=== PATIENT | male | born 1980 | race Caucasian/White ===

== ENCOUNTER 2022-02-14 11:44 | Observation (INO) | payer SELFPAY ==
[2022-02-14 12:22] LABS: Hemoglobin 15.3 g/dL (14.0-18.0); Mean Corpuscular HGB CONC 33.9 g/dL (32.0-36.0); Mean Corpuscular Hemoglobin 32.4 pg (27.0-31.0); Mean Corpuscular Volume 95.4 fL (78.0-98.0); Mean Platelet Volume 7.5 fL (7.4-10.4); Platelet Count 230 thou/uL (130-400); RBC Distribution Width 11.6 % (11.5-14.5); Red Blood Cell (RBC) Count 4.73 mill/uL (4.70-6.10)
[2022-02-14] MEDS ORDERED: Aspirin 325 MG TAB ONE (12:31)
[2022-02-14 13:06] LABS: CKMB 1.9 ng/mL (0-6.6)
[2022-02-14 13:17] LABS: Eosinophils 1 % (0-10); Lymphocytes 24 % (21-51); MDiff Complete? YES; Monocytes 9 % (0-10); Neutrophil 58 % (42-75); Platelet Clumps SLIGHT; Platelet Morphology Comment Appears Adequate; Polychromasia SLIGHT = 2-3 cells (100X) (0-2/hpf); Reactive Lymphocytes 7 % (0-10)
[2022-02-14] MEDS ORDERED: Acetaminophen 325 MG TAB PO PRN (13:59)
[2022-02-14] MEDS ORDERED: Nitroglycerin 0.4 MG TAB (25 Tab Bottle) SL PRN (13:59)
[2022-02-14 14:02] LABS: ALT (SGPT) 47 U/L (8-55); AST (SGOT) 29 U/L (5-34); Albumin 4.7 g/dL (3.5-5.0); Alkaline Phosphatase 73 U/L (40-110); Anion Gap 15 mmol/L (10-20); BUN (Urea Nitrogen) 16 mg/dL (8.9-20.6); Bilirubin, Total 0.6 mg/dL (0.2-1.2); Calc. Creatinine Clearance 0 mL/min (70-130); Calcium 9.8 mg/dL (7.8-10.44); Carbon Dioxide 24 mmol/L (22-29); Chloride 100 mmol/L (98-107); Estimated GFR 113; Globulin 3.5 g/dL (2.4-3.5); Glucose 120 mg/dL (70-105); Lipase 18 U/L (8-78); Potassium 3.7 mmol/L (3.5-5.1); Protein, Total 8.2 g/dL (6.0-8.3); Sodium 135 mmol/L (136-145)
[2022-02-14] MEDS ORDERED: Pantoprazole 40 MG VIAL IVP SCH (14:15)
[2022-02-14 15:11] LABS: Troponin I 0.202 ng/mL (< 0.028)
[2022-02-14] MEDS ORDERED: Enoxaparin Sodium 100 MG/ML SYRINGE SC SCH (15:30)
[2022-02-14 15:33] VITALS: BMI 42.4
[2022-02-14] MEDS ORDERED: Enoxaparin Sodium 30 MG/0.3 ML SYRINGE SC SCH (15:45)
[2022-02-14 17:00] LABS: Amphetamine Not Detected (NotDetected); Barbiturates Screen Not Detected (NotDetected); Benzodiazepine Screen Not Detected (NotDetected); Cocaine Metabolite Screen Not Detected (NotDetected); Methadone Not Detected (NotDetected); Methamphetamine Not Detected (NotDetected); Opiate Screen Not Detected (NotDetected); Oxycodone Screen Not Detected (NotDetected); Phencyclidine (PCP) Not Detected (NotDetected); THC/Cannabinoid Screen Not Detected (NotDetected); Tricyclic Screen Not Detected (NotDetected)
[2022-02-14] MEDS: busPIRone HCl 10 MG TAB PO SCH (20:05)
[2022-02-14] MEDS ORDERED: Atorvastatin Calcium 40 MG TAB PO SCH (21:00)
[2022-02-15 04:05] LABS: SARS-CoV-2 NAA Rapid Test Not Detected (NotDetected)
[2022-02-15 05:12] LABS: #Eosinphils 0.1 thou/uL (0.0-0.7); #Lymphocytes 2.3 thou/uL (1.20-3.40); #Monocytes 0.6 thou/uL (0.11-0.59); #Neutrophils 3.5 thou/uL (1.40-6.50); %Basophils 0.6 % (0.0-1.0); %Lymphocytes 35.2 % (21.0-51.0); %Neutrophils 53.2 % (42.0-75.0); Hemoglobin 14.4 g/dL (14.0-18.0); Mean Corpuscular HGB CONC 34.3 g/dL (32.0-36.0); Mean Corpuscular Hemoglobin 32.8 pg (27.0-31.0); Mean Corpuscular Volume 95.4 fL (78.0-98.0); Mean Platelet Volume 6.7 fL (7.4-10.4); Platelet Count 325 thou/uL (130-400); RBC Distribution Width 11.4 % (11.5-14.5); Red Blood Cell (RBC) Count 4.41 mill/uL (4.70-6.10); White Blood Cell (WBC) Count 6.6 thou/uL (4.8-10.8)
[2022-02-15 05:26] LABS: Anion Gap 15 mmol/L (10-20); BUN (Urea Nitrogen) 17 mg/dL (8.9-20.6); Calc. Creatinine Clearance 201 mL/min (70-130); Calcium 9.8 mg/dL (7.8-10.44); Carbon Dioxide 24 mmol/L (22-29); Cardiac Risk 7.3 (Less than 4.5); Chloride 101 mmol/L (98-107); Cholesterol 234 mg/dl (< 200 Desired); Estimated GFR 111; Glucose 125 mg/dL (70-105); HDL Cholesterol 32 mg/dL (>60 Neg Risk); LDL Cholesterol, Calculated 157 mg/dL; Potassium 3.8 mmol/L (3.5-5.1); Sodium 136 mmol/L (136-145); Triglycerides 224 mg/dL (Less than 150)
[2022-02-15] MEDS: busPIRone HCl 10 MG TAB PO SCH (07:55)
[2022-02-15] MEDS ORDERED: Lisinopril/Hydrochlorothiazide 20 mg/12.5 mg Tablet PO SCH (09:00)
[2022-02-15] MEDS ORDERED: Non-Formulary Item 1 EACH (Sertraline Hcl [Zoloft] 50 MG Tablet) PO SCH (09:00)
[2022-02-15] MEDS ORDERED: Escitalopram Oxalate 10 mg Tablet PO SCH (09:00)
[2022-02-15] MEDS ORDERED: Aspirin Chewable 81 MG TAB PO SCH (09:00)
[2022-02-15 09:19] VITALS: BP 156/70; TEMP 98
== END 2022-02-15 16:09 | disposition home or self-care (01) ==
LOC: ERS 11:44 → 2SW 13:15
PROVIDERS: ADMIT Family Medicine; ATTEND Family Medicine
DX: R07.9 Chest pain, unspecified (principal); I10 Essential (primary) hypertension; K21.9 Gastro-esophageal reflux disease without esophagitis; F17.210 Nicotine dependence, cigarettes, uncomplicated; R77.8 Other specified abnormalities of plasma proteins; F10.10 Alcohol abuse, uncomplicated; R73.9 Hyperglycemia, unspecified; E78.5 Hyperlipidemia, unspecified; I44.7 Left bundle-branch block, unspecified; E66.9 Obesity, unspecified; Z68.41 Body mass index [BMI] 40.0-44.9, adult; Z79.899 Other long term (current) drug therapy; Z88.5 Allergy status to narcotic agent; Z20.822 Contact with and (suspected) exposure to COVID-19
CPT/HCPCS: 36415; 71046; 78452; 80048; 80053; 80061; 80306; 82553; 83690; 84484; 85025; 85379; 93005; 93017; 94760; 96372; 96374; A9500; C9113; G0378; J0153; J1650; U0002

== ENCOUNTER 2024-05-23 10:18 | Inpatient (IN) | payer SELFPAY ==
[2024-05-23 11:08] LABS: #Basophils 0.04 10x3/uL (0.0-0.2); %Basophils 0.5 % (0.0-1.0); %Eosinophils 0.8 % (0.0-10.0); %Monocytes 7.5 % (0.0-10.0); %Neutrophils 71.9 % (42.0-75.0); Hematocrit 51.8 % (42.0-52.0); Hemoglobin 18.1 g/dL (14.0-18.0); Mean Corpuscular HGB CONC 34.9 g/dL (32.0-36.0); Mean Corpuscular Hemoglobin 30.5 pg (27.0-31.0); Mean Corpuscular Volume 87.4 fL (78.0-98.0); Platelet Count 330 10x3/uL (130-400); Red Blood Cell (RBC) Count 5.93 mill/uL (4.70-6.10)
[2024-05-23 11:32] LABS: ALT (SGPT) 27 U/L (8-55); AST (SGOT) 22 U/L (5-34); Albumin 4.5 g/dL (3.5-5.0); Alkaline Phosphatase 51 U/L (40-110); Anion Gap 14 mmol/L (10-20); BUN (Urea Nitrogen) 12 mg/dL (8.9-20.6); Bilirubin, Total 0.8 mg/dL (0.2-1.2); Calc. Creatinine Clearance 0 mL/min (70-130); Calcium 9.9 mg/dL (7.8-10.44); Carbon Dioxide 24 mmol/L (22-29); Chloride 102 mmol/L (98-107); Estimated GFR 108; Globulin 3.5 g/dL (2.4-3.5); Glucose 119 mg/dL (70-105); Potassium 3.7 mmol/L (3.5-5.1); Sodium 136 mmol/L (136-145)
[2024-05-23 11:40] LABS: Troponin I 0.242 ng/mL (< 0.028)
[2024-05-23] MEDS ORDERED: Enoxaparin 60 MG (0.6 mL) SYRINGE ONE (12:12)
[2024-05-23] MEDS ORDERED: Aspirin Chewable 81 MG TAB ONE (12:12)
[2024-05-23] MEDS ORDERED: Acetaminophen 325 MG TAB PO PRN (12:21)
[2024-05-23 15:50] VITALS: BMI 40.8
[2024-05-23] MEDS: Losartan 25 MG TAB PO SCH (16:52)
[2024-05-23] MEDS: hydrOXYzine 25 MG TAB PO PRN (17:11)
[2024-05-23] MEDS: Perflutren Lipid Microspheres 1.1 MG/ML VIAL ONE (18:03)
[2024-05-23 18:09] LABS: Hemoglobin A1c 5.6 % (4.0-6.0)
[2024-05-23 18:09] LABS: Cardiac Risk 5.1 (Less than 4.5)
[2024-05-23 18:37] LABS: Troponin I 0.151 ng/mL (< 0.028)
[2024-05-23] MEDS ORDERED: Atorvastatin Calcium 40 MG TAB PO SCH (21:00)
[2024-05-23 21:01] LABS: Troponin I 0.198 ng/mL (< 0.028)
[2024-05-23] MEDS: Enoxaparin 120 MG/0.8 ML SYRINGE SC SCH (21:41)
[2024-05-24 03:48] LABS: #Basophils 0.05 10x3/uL (0.0-0.2); %Basophils 0.6 % (0.0-1.0); %Eosinophils 2.3 % (0.0-10.0); %Lymphocytes 32.1 % (21.0-51.0); %Monocytes 10.8 % (0.0-10.0); Hematocrit 51.8 % (42.0-52.0); Hemoglobin 17.5 g/dL (14.0-18.0); Mean Corpuscular HGB CONC 33.8 g/dL (32.0-36.0); Mean Corpuscular Hemoglobin 30.4 pg (27.0-31.0); Mean Corpuscular Volume 89.9 fL (78.0-98.0); Mean Platelet Volume 8.9 fL (7.4-10.4); Platelet Count 297 10x3/uL (130-400); RBC Distribution Width 13.3 % (11.5-14.5); Red Blood Cell (RBC) Count 5.76 mill/uL (4.70-6.10)
[2024-05-24 04:03] LABS: Anion Gap 15 mmol/L (10-20); BUN (Urea Nitrogen) 15 mg/dL (8.9-20.6); Calc. Creatinine Clearance 197 mL/min (70-130); Calcium 9.3 mg/dL (7.8-10.44); Carbon Dioxide 23 mmol/L (22-29); Chloride 101 mmol/L (98-107); Estimated GFR 110; Glucose 110 mg/dL (70-105); Potassium 3.8 mmol/L (3.5-5.1); Sodium 135 mmol/L (136-145)
[2024-05-24] MEDS: Losartan 25 MG TAB PO SCH (08:43)
[2024-05-24] MEDS: Pantoprazole DR 40 MG TAB PO SCH (08:43)
[2024-05-24] MEDS: Ezetimibe 10 MG TAB PO SCH (08:43)
[2024-05-24] MEDS: Aspirin Chewable 81 MG TAB PO SCH (08:44)
[2024-05-24] MEDS: busPIRone HCl 10 MG TAB PO SCH (08:44)
[2024-05-24] MEDS: FLU (Fluarix Triv) TS24-25(6MOS UP)/PF 45 MCG/0.5 ML Syringe IM ONE (08:44)
[2024-05-24] MEDS: Sertraline 25 MG TAB PO SCH (08:44)
[2024-05-24] MEDS ORDERED: Non-Formulary Item 1 EACH (Sertraline Hcl [Zoloft] 50 MG Tablet) PO SCH (09:00)
[2024-05-24] MEDS ORDERED: Communication Order-Pharmacy FS SCH (15:00)
[2024-05-25 04:35] LABS: #Basophils 0.06 10x3/uL (0.0-0.2); %Basophils 0.8 % (0.0-1.0); %Lymphocytes 34.9 % (21.0-51.0); %Monocytes 11.9 % (0.0-10.0); %Neutrophils 50.3 % (42.0-75.0); Hematocrit 49.6 % (42.0-52.0); Hemoglobin 16.9 g/dL (14.0-18.0); Mean Corpuscular HGB CONC 34.1 g/dL (32.0-36.0); Mean Corpuscular Hemoglobin 31.2 pg (27.0-31.0); Mean Corpuscular Volume 91.5 fL (78.0-98.0); Platelet Count 282 10x3/uL (130-400); RBC Distribution Width 13.2 % (11.5-14.5); Red Blood Cell (RBC) Count 5.42 mill/uL (4.70-6.10)
[2024-05-25 04:55] LABS: Anion Gap 13 mmol/L (10-20); BUN (Urea Nitrogen) 14 mg/dL (8.9-20.6); Calc. Creatinine Clearance 166 mL/min (70-130); Calcium 9.2 mg/dL (7.8-10.44); Carbon Dioxide 24 mmol/L (22-29); Chloride 102 mmol/L (98-107); Estimated GFR 95; Glucose 105 mg/dL (70-105); Potassium 3.7 mmol/L (3.5-5.1); Sodium 135 mmol/L (136-145)
[2024-05-25] MEDS ORDERED: Iopamidol 370 76% 100 ML VIAL ONE (08:18)
[2024-05-25] MEDS ORDERED: Nitroglycerin 50 MG/250 ML BOT 250 ML ONE (09:23)
[2024-05-25] MEDS ORDERED: Verapamil 5 MG/2 ML VIAL ONE (09:23)
[2024-05-25] MEDS ORDERED: Heparin 10,000 UNITS/ 10 ML VIAL ONE (09:23)
[2024-05-25] MEDS ORDERED: Midazolam HCl 2 mg/2 ml Vial ONE (10:06)
[2024-05-25] MEDS ORDERED: fentaNYL 50 mcg/mL 1 mL Vial ONE (10:06)
[2024-05-25] MEDS ORDERED: Sodium Chloride 0.9% 200 ML IV PRN (10:59)
[2024-05-25] MEDS ORDERED: Nitroglycerin 0.4 MG TAB (25 Tab Bottle) SL PRN (10:59)
[2024-05-25] MEDS: Sodium Chloride 0.9% 250 ML IV SCH ×2 (12:23→12:26)
[2024-05-25] MEDS ORDERED: Communication Order-Pharmacy FS SCH (17:29)
[2024-05-25] MEDS: clonazePAM 1 MG TAB PO PRN (20:15)
[2024-05-26] MEDS: hydrALAZINE 20 MG/ML VIAL SLOW IVP PRN (00:31)
[2024-05-26 05:05] LABS: #Basophils 0.04 10x3/uL (0.0-0.2); %Basophils 0.4 % (0.0-1.0); %Eosinophils 0.5 % (0.0-10.0); %Lymphocytes 21.1 % (21.0-51.0); %Monocytes 10.6 % (0.0-10.0); %Neutrophils 67.1 % (42.0-75.0); Hematocrit 48.8 % (42.0-52.0); Hemoglobin 16.6 g/dL (14.0-18.0); Mean Platelet Volume 8.7 fL (7.4-10.4); Platelet Count 309 10x3/uL (130-400); RBC Distribution Width 13.2 % (11.5-14.5); Red Blood Cell (RBC) Count 5.36 mill/uL (4.70-6.10)
[2024-05-26 05:20] LABS: Anion Gap 13 mmol/L (10-20); BUN (Urea Nitrogen) 16 mg/dL (8.9-20.6); Calc. Creatinine Clearance 169 mL/min (70-130); Calcium 8.9 mg/dL (7.8-10.44); Carbon Dioxide 23 mmol/L (22-29); Chloride 103 mmol/L (98-107); Estimated GFR 98; Glucose 107 mg/dL (70-105); Potassium 3.5 mmol/L (3.5-5.1); Sodium 135 mmol/L (136-145)
[2024-05-26] MEDS ORDERED: Dexamethasone 4 mg/ml Vial ONE (06:27)
[2024-05-26] MEDS ORDERED: Bupivacaine PF 0.5% 30 ML VIAL ONE (06:27)
[2024-05-26] MEDS ORDERED: EPINEPHrine 1 MG/ML VIAL ONE (06:27)
[2024-05-26] MEDS ORDERED: PHENYLEPHRINE-NS 100 MCG/ML 10 ML SYRINGE ONE ×3 (06:27→11:14)
[2024-05-26] MEDS ORDERED: Albumin 5% 500 ML ONE (06:28)
[2024-05-26] MEDS ORDERED: PROPOFOL 20 ML ONE ×2 (06:45→11:32)
[2024-05-26] MEDS ORDERED: fentaNYL PF 100 MCG/2 ML SYRINGE ONE ×2 (06:45→11:32)
[2024-05-26] MEDS ORDERED: Heparin 10,000 UNITS/1 ML VIAL 30,000 UNITS in Sodium Chloride 0.9% 1,000 ML FS SCH (06:45)
[2024-05-26] MEDS ORDERED: Midazolam HCl 2 mg/2 ml Vial ONE ×2 (06:46→11:32)
[2024-05-26] MEDS ORDERED: Ondansetron PF 4 MG/2 ML Vial ONE (06:47)
[2024-05-26] MEDS ORDERED: Dexamethasone 20 MG/5 ML VIAL ONE (06:47)
[2024-05-26] MEDS ORDERED: Lidocaine 1% PF 5 ML VIAL ONE (06:47)
[2024-05-26] MEDS ORDERED: Rocuronium Bromide 10 MG/ML (10ML VIAL) ONE ×3 (06:47→13:12)
[2024-05-26] MEDS ORDERED: Lidocaine 1% MPF 2 ML VIAL ONE (06:50)
[2024-05-26] MEDS ORDERED: Etomidate 40 MG (20 mL) VIAL ONE (07:15)
[2024-05-26] MEDS ORDERED: CEFAZOLIN 2 GM VIAL ONE (07:27)
[2024-05-26] MEDS ORDERED: Potassium Chloride 60 mEq (30 mL) VIAL ONE (07:42)
[2024-05-26] MEDS ORDERED: Protamine Sulfate 250 MG/25 ML VIAL ONE (07:42)
[2024-05-26] MEDS ORDERED: Heparin 30,000 units/30 ml VIAL ONE (07:42)
[2024-05-26] MEDS ORDERED: Heparin 5,000 UNITS/ML VIAL ONE (07:42)
[2024-05-26] MEDS ORDERED: Lidocaine 2% PF 100 mg/5 ml Syringe ONE (07:42)
[2024-05-26] MEDS ORDERED: Sodium Bicarb 50 mEq/50 ML VIAL ONE (07:42)
[2024-05-26] MEDS ORDERED: Cardioplegic Soln 1,000 ML BAG ONE (07:42)
[2024-05-26] MEDS ORDERED: Papaverine 60 MG/2 ML VIAL ONE ×2 (07:42→08:30)
[2024-05-26] MEDS ORDERED: Mannitol 12.5 GM/50 ML ONE (07:42)
[2024-05-26] MEDS ORDERED: Vancomycin 1 GM VIAL ONE (07:42)
[2024-05-26] MEDS ORDERED: Magnesium 5 GM/10 ML VIAL ONE (07:42)
[2024-05-26] MEDS ORDERED: Calcium Chloride 1 GM/10 ML Abboject SYRINGE ONE (07:42)
[2024-05-26] MEDS ORDERED: Aminocaproic Acid 5 GM/20 ML VIAL ONE (07:42)
[2024-05-26] MEDS ORDERED: Thrombin 5000 UNITS/5 ML VIAL ONE (07:42)
[2024-05-26] MEDS ORDERED: Esmolol 100 MG/10 ML VIAL ONE (08:10)
[2024-05-26 09:09] LABS: Magnesium 2.1 mg/dL (1.6-2.6)
[2024-05-26] MEDS ORDERED: Heparin 10,000 UNITS/ 10 ML VIAL ONE (10:06)
[2024-05-26] MEDS ORDERED: Vasopressin 20 UNITS/ML VIAL ONE ×2 (12:16→13:49)
[2024-05-26] MEDS ORDERED: EPINEPHrine 4 MG in Dextrose 5% in Water 250 ML IVP SCH (12:45)
[2024-05-26] MEDS ORDERED: Insulin Regular, Human 100 UNIT/ML 10 ML VIAL ONE (13:46)
[2024-05-26] MEDS ORDERED: HYDROcodone/Acetaminophen 5/325 mg Tablet PO PRN ×2 (15:41)
[2024-05-26] MEDS ORDERED: Ondansetron PF 4 MG/2 ML Vial IVP PRN (15:41)
[2024-05-26] MEDS ORDERED: Promethazine HCl 25 MG/ML VIAL IM PRN (15:41)
[2024-05-26] MEDS ORDERED: Guaifenesin DM 100-10/5 ML UDCUP PO PRN (15:41)
[2024-05-26] MEDS ORDERED: Bisacodyl 10 MG SUPP PR PRN (15:41)
[2024-05-26] MEDS ORDERED: hydrALAZINE 20 MG/ML VIAL SLOW IVP PRN (15:41)
[2024-05-26] MEDS ORDERED: EPINEPHrine 4 MG in Dextrose 5% in Water 250 ML IV SCH (15:41)
[2024-05-26] MEDS ORDERED: Albumin 5% 12.5 GM (250 mL) BOT IVPB PRN (15:41)
[2024-05-26] MEDS ORDERED: Mag-Al 1200 mg/1200 mg/30 ML UDCUP PO PRN (15:41)
[2024-05-26] MEDS ORDERED: Ipratropium/Albuterol 3 ML NEB NEB PRN (15:41)
[2024-05-26 16:00] LABS: Actual Bicarbonate (HCO3a) 19.8 mEq/L (22-28); Base Excess (BEa) -9.3 mEq/L (-2.0 to +3.0); CO2 Tension 56.2 mmHg (35.0-45.0); Calcium, Ionized (arterial) 1.08 mmol/L (1.12-1.30); Carboxyhemoglobin (COHb) 1.2 gm% (0.0-3.0); Hematocrit-ABG 44 % (42.0-52.0); Hemoglobin (Hb) 14.9 g/dL (14.0-18.0); O2 Tension (PaO2), arterial 85.5 mmHg (80.0-100.0); Potassium - ABG Lab 3.74 mmol/L (3.70-5.30)
[2024-05-26 16:03] LABS: Puncture Site Arterial Line; pH, Arterial 7.165 (7.35-7.45)
[2024-05-26] MEDS ORDERED: Dextrose 5% in Water 1,000 ML IV PRN (16:15)
[2024-05-26] MEDS ORDERED: INSULIN REGULAR IN 0.9 % NACL 100 UNITS in Premix 1 BAG IVPB SCH (16:15)
[2024-05-26] MEDS ORDERED: Dextrose 50% Abboject 50 ML SYRINGE SLOW IVP PRN (16:15)
[2024-05-26] MEDS ORDERED: Glucagon 1 MG/ML KIT SC PRN (16:15)
[2024-05-26 16:18] LABS: INR-International Normal Ratio 1.3; Prothrombin Time 16.1 sec (12.0-14.7)
[2024-05-26 16:19] LABS: PTT 28.2 sec (22.9-36.1)
[2024-05-26] MEDS: Magnesium 2 GM/50 ML(in water) 2 GM in Premix 1 BAG IVPB SCH (16:20)
[2024-05-26] MEDS: Morphine 2 MG/ML VIAL SLOW IVP PRN (16:21)
[2024-05-26] MEDS: CEFAZOLIN 2 GM in Sodium Chloride 0.9% 100 ML IVPB SCH (16:23)
[2024-05-26] MEDS: Ketorolac Tromethamine 30 MG (1 mL) VIAL IVP SCH (16:23)
[2024-05-26] MEDS: NOREPINEPHRINE 8 MG/250 ML-D5W 250 ML IVPB PRN (16:24)
[2024-05-26] MEDS: Sodium Chloride 0.9% 1,000 ML IV SCH (16:24)
[2024-05-26] MEDS: Post-Op Insulin Drip Protocol IVPB ONE (16:26)
[2024-05-26] MEDS: NOREPINEPHRINE 8 MG/250 ML-D5W 250 ML ONE (16:26)
[2024-05-26] MEDS: Insulin Regular, Human 100 UNIT/ML 10 ML VIAL SC PRN (16:26)
[2024-05-26 16:28] LABS: Anion Gap 19 mmol/L (10-20); BUN (Urea Nitrogen) 19 mg/dL (8.9-20.6); Calc. Creatinine Clearance 81 mL/min (70-130); Calcium 7.5 mg/dL (7.8-10.44); Carbon Dioxide 16 mmol/L (22-29); Chloride 106 mmol/L (98-107); Estimated GFR 40; Glucose 160 mg/dL (70-105); Potassium 3.6 mmol/L (3.5-5.1); Sodium 137 mmol/L (136-145)
[2024-05-26] MEDS: Albumin 5% 12.5 GM (250 mL) BOT IVPB PRN (16:45)
[2024-05-26] MEDS: Acetaminophen 325 MG TAB PO SCH (16:50)
[2024-05-26 16:54] LABS: Band 4 % (5-11); Lymphocytes 5 % (21-51); Monocytes 8 % (0-10); Neutrophil 83 % (42-75); Platelet Adequacy Comment Platelets Normal
[2024-05-26] MEDS: fentaNYL 50 mcg/mL 1 mL Vial SLOW IVP PRN (17:02)
[2024-05-26 17:19] LABS: Hematocrit 42.3 % (42.0-52.0); Hemoglobin 14.4 g/dL (14.0-18.0); Mean Corpuscular Hemoglobin 31.9 pg (27.0-31.0); Mean Corpuscular Volume 93.8 fL (78.0-98.0); Platelet Count 262 10x3/uL (130-400); RBC Distribution Width 13.7 % (11.5-14.5); Red Blood Cell (RBC) Count 4.51 mill/uL (4.70-6.10)
[2024-05-26] MEDS: Potassium Chloride 20 MEQ (100 mL) BAG IVPB PRN (17:29)
[2024-05-26 20:31] LABS: Actual Bicarbonate (HCO3a) 24.3 mEq/L (22-28); Base Excess (BEa) -0.7 mEq/L (-2.0 to +3.0); CO2 Tension 41.4 mmHg (35.0-45.0); Calcium, Ionized (arterial) 1.09 mmol/L (1.12-1.30); Carboxyhemoglobin (COHb) 0.7 gm% (0.0-3.0); Hematocrit-ABG 44 % (42.0-52.0); Hemoglobin (Hb) 14.8 g/dL (14.0-18.0); O2 Tension (PaO2), arterial 165.7 mmHg (80.0-100.0); Potassium - ABG Lab 4.54 mmol/L (3.70-5.30); pH, Arterial 7.386 (7.35-7.45)
[2024-05-26 20:32] LABS: Puncture Site Arterial Line
[2024-05-26] MEDS: Famotidine/PF 20 mg/2ml Vial SLOW IVP SCH (20:53)
[2024-05-26 21:16] LABS: Hematocrit 40.5 % (42.0-52.0); Hemoglobin 13.5 g/dL (14.0-18.0)
[2024-05-26] MEDS: Atorvastatin Calcium 40 MG TAB PO SCH (21:45)
[2024-05-26 23:27] LABS: Potassium 4.2 mmol/L (3.5-5.1)
[2024-05-27] MEDS: fentaNYL 50 mcg/mL 1 mL Vial SLOW IVP PRN (03:00)
[2024-05-27 05:14] LABS: #Basophils Less than 0.03 10x3/uL (0.0-0.2); #Eosinophils Less than 0.03 10x3/uL (0.0-0.7); %Basophils 0.1 % (0.0-1.0); %Lymphocytes 5.5 % (21.0-51.0); %Monocytes 11.5 % (0.0-10.0); %Neutrophils 82.6 % (42.0-75.0); Hematocrit 37.3 % (42.0-52.0); Hemoglobin 12.4 g/dL (14.0-18.0); Mean Corpuscular HGB CONC 33.2 g/dL (32.0-36.0); Mean Corpuscular Hemoglobin 31.3 pg (27.0-31.0); Mean Corpuscular Volume 94.2 fL (78.0-98.0); Platelet Count 198 10x3/uL (130-400); RBC Distribution Width 13.6 % (11.5-14.5); Red Blood Cell (RBC) Count 3.96 mill/uL (4.70-6.10)
[2024-05-27 05:31] LABS: Anion Gap 13 mmol/L (10-20); BUN (Urea Nitrogen) 14 mg/dL (8.9-20.6); Calc. Creatinine Clearance 167 mL/min (70-130); Calcium 7.3 mg/dL (7.8-10.44); Carbon Dioxide 22 mmol/L (22-29); Chloride 106 mmol/L (98-107); Estimated GFR 96; Glucose 120 mg/dL (70-105); Potassium 4.2 mmol/L (3.5-5.1); Sodium 137 mmol/L (136-145)
[2024-05-27] MEDS: Aspirin 325 MG TAB PO SCH (08:33)
[2024-05-27] MEDS: Loratadine 10 MG TAB PO SCH (08:33)
[2024-05-27] MEDS: Magnesium 2 GM/50 ML(in water) 2 GM in Premix 1 BAG IVPB SCH (08:33)
[2024-05-27] MEDS: traMADol HCl 50 MG TAB PO PRN (08:33)
[2024-05-27] MEDS: Ezetimibe 10 MG TAB PO SCH (08:35)
[2024-05-27] MEDS: busPIRone HCl 10 MG TAB PO SCH (11:25)
[2024-05-27] MEDS: Sertraline 25 MG TAB PO SCH (11:25)
[2024-05-27] MEDS: Cyclobenzaprine 10 MG TAB PO SCH (14:55)
[2024-05-27] MEDS ORDERED: Insulin Glargine 30 UNITS/0.3 ML VIAL SC PRN (16:05)
[2024-05-27] MEDS: Heparin 5,000 UNITS/ML VIAL SC SCH (16:12)
[2024-05-27] MEDS: ALPRAZolam 0.25 MG TAB PO PRN (20:39)
[2024-05-27] MEDS: Famotidine 20 MG TAB PO SCH (20:39)
[2024-05-29] MEDS: Sertraline 25 MG TAB PO SCH (17:13)
[2024-05-29] MEDS: busPIRone HCl 10 MG TAB PO SCH ×3 (17:15→23:24)
[2024-05-29] MEDS: Sacubitril 24MG/Valsartan 26 MG TAB PO SCH (20:36)
[2024-05-29] MEDS: busPIRone HCl 10 MG TAB ONE (20:37)
[2024-05-30 04:30] LABS: #Basophils 0.05 10x3/uL (0.0-0.2); %Basophils 0.5 % (0.0-1.0); %Eosinophils 1.3 % (0.0-10.0); %Lymphocytes 18.9 % (21.0-51.0); %Monocytes 10.8 % (0.0-10.0); %Neutrophils 67.9 % (42.0-75.0); Hematocrit 34.1 % (42.0-52.0); Hemoglobin 11.7 g/dL (14.0-18.0); Mean Corpuscular HGB CONC 34.3 g/dL (32.0-36.0); Mean Corpuscular Hemoglobin 31.2 pg (27.0-31.0); Mean Corpuscular Volume 90.9 fL (78.0-98.0); Mean Platelet Volume 10.3 fL (7.4-10.4); Platelet Count 265 10x3/uL (130-400); Red Blood Cell (RBC) Count 3.75 mill/uL (4.70-6.10)
[2024-05-30 05:00] LABS: Anion Gap 12 mmol/L (10-20); BUN (Urea Nitrogen) 32 mg/dL (8.9-20.6); Calc. Creatinine Clearance 146 mL/min (70-130); Calcium 8.1 mg/dL (7.8-10.44); Carbon Dioxide 23 mmol/L (22-29); Chloride 105 mmol/L (98-107); Estimated GFR 96; Glucose 94 mg/dL (70-105); Potassium 3.4 mmol/L (3.5-5.1); Sodium 137 mmol/L (136-145)
[2024-05-30 07:52] LABS: Magnesium 2.3 mg/dL (1.6-2.6)
[2024-05-30] MEDS: Carvedilol 3.125 MG TAB ONE ×3 (08:44→14:25)
[2024-05-30] MEDS: busPIRone HCl 10 MG TAB ONE ×3 (08:44→21:55)
[2024-05-30] MEDS: Dapagliflozin Propanediol 10 MG TAB PO SCH (08:46)
[2024-05-30] MEDS: Furosemide 20 MG (2 mL) VIAL ONE ×3 (08:48→16:09)
[2024-05-30] MEDS: Furosemide 20 MG (2 mL) VIAL SLOW IVP SCH (08:51)
[2024-05-30] MEDS: Carvedilol 3.125 MG TAB PO SCH (16:09)
[2024-05-30] MEDS: Potassium Chloride 20 MEQ TAB PO SCH ×2 (17:05→17:06)
[2024-05-31 06:23] LABS: #Basophils 0.05 10x3/uL (0.0-0.2); %Basophils 0.6 % (0.0-1.0); %Eosinophils 2.2 % (0.0-10.0); %Monocytes 13.1 % (0.0-10.0); %Neutrophils 66.5 % (42.0-75.0); Hematocrit 36.2 % (42.0-52.0); Mean Corpuscular HGB CONC 33.1 g/dL (32.0-36.0); Mean Corpuscular Hemoglobin 31.3 pg (27.0-31.0); Mean Corpuscular Volume 94.5 fL (78.0-98.0); Mean Platelet Volume 9.5 fL (7.4-10.4); Platelet Count 319 10x3/uL (130-400); RBC Distribution Width 13.1 % (11.5-14.5); Red Blood Cell (RBC) Count 3.83 mill/uL (4.70-6.10)
[2024-05-31] MEDS: Furosemide 20 MG (2 mL) VIAL ONE ×2 (06:36→15:05)
[2024-05-31 06:42] LABS: Anion Gap 14 mmol/L (10-20); BUN (Urea Nitrogen) 18 mg/dL (8.9-20.6); Calc. Creatinine Clearance 193 mL/min (70-130); Calcium 8.5 mg/dL (7.8-10.44); Carbon Dioxide 25 mmol/L (22-29); Chloride 106 mmol/L (98-107); Estimated GFR 110; Glucose 86 mg/dL (70-105); Potassium 3.8 mmol/L (3.5-5.1); Sodium 141 mmol/L (136-145)
[2024-05-31] MEDS: busPIRone HCl 10 MG TAB ONE ×3 (07:47→20:42)
[2024-05-31] MEDS: ALPRAZolam 0.25 MG TAB ONE (07:47)
[2024-05-31] MEDS: Carvedilol 3.125 MG TAB ONE ×3 (07:47→17:07)
[2024-05-31] MEDS: Bisacodyl 5 MG TAB PO PRN (15:10)
[2024-05-31 15:45] VITALS: BMI 41.1
[2024-06-01] MEDS: Furosemide 20 MG (2 mL) VIAL ONE ×2 (05:21→14:34)
[2024-06-01 06:11] LABS: #Basophils 0.07 10x3/uL (0.0-0.2); %Basophils 0.5 % (0.0-1.0); %Eosinophils 1.7 % (0.0-10.0); %Lymphocytes 16.8 % (21.0-51.0); %Monocytes 12.5 % (0.0-10.0); Hematocrit 39.5 % (42.0-52.0); Hemoglobin 13.6 g/dL (14.0-18.0); Mean Corpuscular HGB CONC 34.4 g/dL (32.0-36.0); Mean Corpuscular Hemoglobin 31.1 pg (27.0-31.0); Mean Corpuscular Volume 90.2 fL (78.0-98.0); Mean Platelet Volume 9.1 fL (7.4-10.4); Platelet Count 370 10x3/uL (130-400); RBC Distribution Width 13.1 % (11.5-14.5); Red Blood Cell (RBC) Count 4.38 mill/uL (4.70-6.10)
[2024-06-01 06:46] LABS: Anion Gap 12 mmol/L (10-20); BUN (Urea Nitrogen) 17 mg/dL (8.9-20.6); Calc. Creatinine Clearance 191 mL/min (70-130); Carbon Dioxide 22 mmol/L (22-29); Chloride 105 mmol/L (98-107); Estimated GFR 110; Glucose 93 mg/dL (70-105); Potassium 3.9 mmol/L (3.5-5.1); Sodium 135 mmol/L (136-145)
[2024-06-01] MEDS: busPIRone HCl 10 MG TAB ONE ×2 (09:11→21:52)
[2024-06-01] MEDS: Carvedilol 3.125 MG TAB ONE (16:16)
[2024-06-02 04:53] LABS: #Basophils 0.05 10x3/uL (0.0-0.2); %Basophils 0.4 % (0.0-1.0); %Eosinophils 1.6 % (0.0-10.0); %Lymphocytes 18.3 % (21.0-51.0); %Monocytes 10.6 % (0.0-10.0); %Neutrophils 68.4 % (42.0-75.0); Hematocrit 38.7 % (42.0-52.0); Mean Corpuscular HGB CONC 33.6 g/dL (32.0-36.0); Mean Corpuscular Hemoglobin 31.5 pg (27.0-31.0); Mean Corpuscular Volume 93.7 fL (78.0-98.0); Mean Platelet Volume 9.1 fL (7.4-10.4); Platelet Count 407 10x3/uL (130-400); RBC Distribution Width 13.2 % (11.5-14.5); Red Blood Cell (RBC) Count 4.13 mill/uL (4.70-6.10)
[2024-06-02] MEDS: Furosemide 20 MG (2 mL) VIAL ONE (05:07)
[2024-06-02 05:08] LABS: Anion Gap 12 mmol/L (10-20); BUN (Urea Nitrogen) 15 mg/dL (8.9-20.6); Calc. Creatinine Clearance 183 mL/min (70-130); Calcium 8.9 mg/dL (7.8-10.44); Carbon Dioxide 22 mmol/L (22-29); Chloride 104 mmol/L (98-107); Estimated GFR 110; Glucose 91 mg/dL (70-105); Potassium 4.1 mmol/L (3.5-5.1); Sodium 134 mmol/L (136-145)
[2024-06-02] MEDS: busPIRone HCl 10 MG TAB PO SCH (08:23)
[2024-06-02] MEDS: Carvedilol 3.125 MG TAB ONE (08:23)
[2024-06-02] MEDS: busPIRone HCl 10 MG TAB ONE (08:24)
[2024-06-02] MEDS: Amlodipine 5 MG TAB PO SCH (12:01)
[2024-06-02 16:54] VITALS: BP 122/68; TEMP 97.9
[2024-06-03] MEDS ORDERED: Furosemide 20 MG TAB PO SCH (09:00)
[2024-06-03] MEDS ORDERED: Amlodipine 5 MG TAB PO SCH (09:00)
== END 2024-06-02 16:50 | disposition home or self-care (01) | DRG 234 ==
LOC: ERS 10:18 → SUATTDRO 10:18 → OBS 14:05 → OBSVTOIN 05-25 10:52 → CCU 05-26 14:29 → 2NO 05-27 11:00
PROVIDERS: ADMIT Internal Medicine; ATTEND Family Medicine
PROC: 4A023N7 Measurement of Cardiac Sampling and Pressure, Left Heart, Percutaneous Approach (ICD-10-PCS; principal; 2024-05-25)
PROC: B2101ZZ Fluoroscopy of Single Coronary Artery using Low Osmolar Contrast (ICD-10-PCS; 2024-05-25)
PROC: B2151ZZ Fluoroscopy of Left Heart using Low Osmolar Contrast (ICD-10-PCS; 2024-05-25)
PROC: 02100Z9 Bypass Coronary Artery, One Artery from Left Internal Mammary, Open Approach (ICD-10-PCS; 2024-05-26)
PROC: 021109W Bypass Coronary Artery, Two Arteries from Aorta with Autologous Venous Tissue, Open Approach (ICD-10-PCS; 2024-05-26)
PROC: 06BQ0ZZ Excision of Left Saphenous Vein, Open Approach (ICD-10-PCS; 2024-05-26)
PROC: 5A1221Z Performance of Cardiac Output, Continuous (ICD-10-PCS; 2024-05-26)
PROC: 02L70CK Occlusion of Left Atrial Appendage with Extraluminal Device, Open Approach (ICD-10-PCS; 2024-05-26)
PROC: 4A133R1 Monitoring of Arterial Saturation, Peripheral, Percutaneous Approach (ICD-10-PCS; 2024-05-26)
PROC: 3E033XZ Introduction of Vasopressor into Peripheral Vein, Percutaneous Approach (ICD-10-PCS; 2024-05-26)
DX: I21.4 Non-ST elevation (NSTEMI) myocardial infarction (principal); E87.1 Hypo-osmolality and hyponatremia; I42.0 Dilated cardiomyopathy; I50.22 Chronic systolic (congestive) heart failure; N17.9 Acute kidney failure, unspecified; F41.1 Generalized anxiety disorder; E78.5 Hyperlipidemia, unspecified; Z88.5 Allergy status to narcotic agent; Z98.890 Other specified postprocedural states; Z79.899 Other long term (current) drug therapy; I44.7 Left bundle-branch block, unspecified; K21.9 Gastro-esophageal reflux disease without esophagitis; F32.A Depression, unspecified; F17.210 Nicotine dependence, cigarettes, uncomplicated; Z79.82 Long term (current) use of aspirin; I11.0 Hypertensive heart disease with heart failure; I25.10 Atherosclerotic heart disease of native coronary artery without angina pectoris; E83.42 Hypomagnesemia; E66.01 Morbid (severe) obesity due to excess calories; E87.6 Hypokalemia; Z68.38 Body mass index [BMI] 38.0-38.9, adult
CPT/HCPCS: 0439T; 36140; 36415; 36416; 36430; 71045; 80048; 80053; 80061; 82805; 83036; 83735; 84443; 84484; 85025; 85610; 85730; 86850; 86900; 86901; 90656; 93005; 93010; 93458; 93798; 94002; 96372; 97139; 99152; 99153; A4311; A4648; C1751; C1769; C1889; C1894; G0378; J0171; J0665; J1100; J1642; J1643; J1644; J1650; J1815; J1885; J1940; J2003; J2150; J2250; J2260; J2272; J2405; J2440; J2704; J2720; J3010; J3370; J3475; J3480; J3490; J7030; J7070; P9045; Q9957; Q9967; S0017